=== PATIENT | female | born 1955 | race African-American/Black ===

== ENCOUNTER 2018-01-11 09:12 | Emergency (ER) | payer SELFPAY ==
[2018-01-11] MEDS: NITROGLYCERIN 0.4 MG SUBL TABLET SL (09:40)
[2018-01-11] MEDS: ASPIRIN 81 MG CHEW TABLET PO (09:41)
[2018-01-11 09:42] LABS: BASO % 0.3 % (0.0-1.0); EOS # 0.1 10^3/uL (0.0-0.50); EOS % 1.2 % (0.0-3.0); HEMATOCRIT 37.9 % (36.0-47.0); HEMOGLOBIN 11.9 g/dl (12.0-15.5); IMMATURE GRANULOCYTE % 0.2 % (0-3.0); LYMPH # 2.4 10^3/uL (1.5-4.5); LYMPH % 41.6 % (24.0-44.0); MEAN CORPUSCULAR HEMOGLOBIN 25.6 pg (27.0-33.0); MEAN CORPUSCULAR HGB CONC 31.4 g/dl (32.0-36.5); MEAN CORPUSCULAR VOLUME 81.5 fl (80.0-96.0); MONO # 0.6 10^3/uL (0.0-0.8); MONO % 9.7 % (0.0-5.0); NEUTROPHILS # 2.7 10^3/uL (1.8-7.7); PLATELET COUNT, AUTOMATED 268 10^3/uL (150-450); RED BLOOD COUNT 4.65 10^6/uL (4.00-5.40); RED CELL DISTRIBUTION WIDTH 14.3 % (11.5-14.5); WHITE BLOOD COUNT 5.8 10^3/uL (4.0-10.0)
[2018-01-11 09:52] LABS: INR 1.01; PROTHROMBIN TIME 13.4 SECONDS (12.1-14.4)
[2018-01-11 09:53] LABS: PARTIAL THROMBOPLASTIN TIME 29.2 SECONDS (25.4-37.6)
[2018-01-11 10:03] LABS: D-DIMER QUANT < 270.0 ng/ml (<500)
[2018-01-11 10:14] LABS: ANION GAP 6 MEQ/L (8-16); BLOOD UREA NITROGEN 19 MG/DL (7-18); CALCIUM LEVEL 9.2 MG/DL (8.8-10.2); CARBON DIOXIDE LEVEL 33 MEQ/L (21-32); CHLORIDE LEVEL 105 MEQ/L (98-107); CPK CREATINE PHOSPHOKINASE 73 U/L (26-192); CREATININE FOR GFR 0.89 MG/DL (0.55-1.30); GLOMERULAR FILTRATION RATE > 60.0 (>45); GLUCOSE, FASTING 120 MG/DL (70-100); POTASSIUM SERUM 3.3 MEQ/L (3.5-5.1); SODIUM LEVEL 144 MEQ/L (136-145); TROPONIN I < 0.02 NG/ML (< 0.10)
[2018-01-11 10:20] LABS: CK-MB VALUE MASS < 1.0 NG/ML (<3.6); MB/CK RELATIVE INDEX 1.36 (< OR =4); NT-PRO BNP 94 PG/ML (<125)
[2018-01-11 14:35] LABS: CK-MB VALUE MASS < 1.0 NG/ML (<3.6); CPK CREATINE PHOSPHOKINASE 66 U/L (26-192); MB/CK RELATIVE INDEX 1.51 (< OR =4); TROPONIN I < 0.02 NG/ML (< 0.10)
[2018-01-11] MEDS: POTASSIUM CHLORIDE 10 MEQ SR TABLET PO (14:52)
[2018-01-11] MEDS: amLODIPine 5 MG TAB PO (14:52)
== END 2018-01-11 15:07 | disposition home or self-care (01) ==
LOC: M ED 09:12
DX: R07.89 Other chest pain (principal); I10 Essential (primary) hypertension; E87.6 Hypokalemia; R94.31 Abnormal electrocardiogram [ECG] [EKG]; E78.5 Hyperlipidemia, unspecified
CPT/HCPCS: 71045